=== PATIENT | female | born 1985 | race Caucasian/White ===

== ENCOUNTER 2018-11-20 20:24 | Emergency (ER) | payer SELFPAY ==
[2018-11-20] MEDS ORDERED: ONDANSETRON 4 MG/2 ML VIAL ONE (21:42)
[2018-11-20] MEDS ORDERED: KETOROLAC 30 MG/ML INJ ONE (21:42)
[2018-11-20] MEDS ORDERED: NA CHLORIDE 0.9% 1,000 ML ONE (21:42)
[2018-11-20 21:48] LABS: Absolute Lymphocytes (CBC) 2.6 K/uL (0.7-4.9); Basophils % 0.7 % (0-1.3); Hematocrit 40.7 % (36.0-45.0); Lymphocytes % 31.2 % (15.3-44.8); MPV 9.1 fL (7.6-11.3); RBC Red Blood Cell Count 4.17 M/uL (3.86-4.86)
[2018-11-20 21:49] LABS: ALT/SGPT 17 U/L (12-78); AST/SGOT 16 U/L (15-37); Albumin 3.7 g/dL (3.4-5.0); Alkaline Phosphatase 81 U/L (45-117); BUN Blood Urea Nitrogen 7 mg/dL (7-18); Bicarbonate 24 mmol/L (21-32); Bilirubin Direct < 0.1 mg/dL (0-0.2); Bilirubin Total 0.3 mg/dL (0.2-1.0); Glucose Level 91 mg/dL (74-106); Lipase 89 U/L (73-393); Potassium 3.4 mmol/L (3.5-5.1); Protein, Total 6.9 g/dL (6.4-8.2); Sodium Level 141 mmol/L (136-145)
[2018-11-20 22:09] LABS: Urine Blood NEGATIVE (NEG); Urine Glucose NEGATIVE (NEG); Urine Protein NEGATIVE (NEG); Urine pH 6.5 (5.0-7.0)
[2018-11-20] MEDS ORDERED: NS KCL 20MEQ 1,000 ML IV ONE (22:21)
--- NOTE | 2018-11-20 23:24 | EDPHYS ---
Physician Documentation [facility] Name: Rei Heller Age: 33 yrs Sex: Female : 1985 Arrival Date: 11/20/2018 Time: 20:36 Bed 6 Private MD: ED Physician Dutch Rosales HPI: 11/20 21:10 This 33 yrs old Female presents to ER via Ambulatory with complaints of kb Abdominal Pain. 21:10 The patient presents with abdominal pain right lower quadrant. Onset: The kb symptoms/episode began/occurred yesterday. The symptoms do not radiate. Associated signs and symptoms: none. The symptoms are described as constant. Modifying factors: The symptoms are alleviated by position. the symptoms are aggravated by walking, stretching out. Severity of pain: At its worst the pain was moderate severe in the emergency department the pain is unchanged. The patient has not experienced similar symptoms in the past. The patient has not recently seen a physician. 21:11 abd pain that started yesterday in umbilical area that was intermittent. Today pain is kb constant and localized to RLQ. 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 - Social history:: Smoking status: Patient uses tobacco products, smokes one pack cigarettes per day. - Ebola Screening: : Patient denies travel to an Ebola-affected area in the 21 days before illness onset. ROS: 21:10 Constitutional: Negative for fever, chills, and weight loss, ENT: Negative for injury, kb pain, and discharge, Neck: Negative for injury, pain, and swelling, Cardiovascular: Negative for chest pain, palpitations, and edema, Respiratory: Negative for shortness of breath, cough, wheezing, and pleuritic chest pain, Back: Negative for injury and pain, MS/Extremity: Negative for injury and deformity, Skin: Negative for injury, rash, and discoloration, Neuro: Negative for headache, weakness, numbness, tingling, and seizure. 21:10 Abdomen/GI: Positive for abdominal pain. Exam: 21:09 Constitutional: This is a well developed, well nourished patient who is awake, alert, kb and in no acute distress. Head/Face: Normocephalic, atraumatic. ENT: Nares patent. No nasal discharge, no septal abnormalities noted. Tympanic membranes are normal and external auditory canals are clear. Oropharynx with no redness, swelling, or masses, exudates, or evidence of obstruction, uvula midline. Mucous membranes moist. Neck: Trachea midline, no thyromegaly or masses palpated, and no cervical lymphadenopathy. Supple, full range of motion without nuchal rigidity, or vertebral point tenderness. No Meningismus. Chest/axilla: Normal chest wall appearance and motion. Nontender with no deformity. No lesions are appreciated. Cardiovascular: Regular rate and rhythm with a normal S1 and S2. No gallops, murmurs, or rubs. Normal PMI, no JVD. No pulse deficits. Respiratory: Lungs have equal breath sounds bilaterally, clear to auscultation and percussion. No rales, rhonchi or wheezes noted. No increased work of breathing, no retractions or nasal flaring. Back: No spinal tenderness. No costovertebral tenderness. Full range of motion. Skin: Warm, dry with normal turgor. Normal color with no rashes, no lesions, and no evidence of cellulitis. MS/ Extremity: Pulses equal, no cyanosis. Neurovascular intact. Full, normal range of motion. Neuro: Awake and alert, GCS 15, oriented to person, place, time, and situation. Cranial nerves II-XII grossly intact. Motor strength 5/5 in all extremities. Sensory grossly intact. Cerebellar exam normal. Normal gait. 21:09 Abdomen/GI: Inspection: abdomen appears normal, Bowel sounds: normal, in all quadrants, Palpation: moderate abdominal tenderness, in the right lower quadrant, Indicators: McBurney's point is tender, Rovsing's sign is positive. Vital Signs: 20:44 BP 116 / 63; Pulse 84; Resp 18; Temp 98.4; Pulse Ox 96% on R/A; Weight 70.31 kg (R); aj1 Height 5 ft. 0 in. (152.40 cm) (R); Pain 8/10; 21:30 BP 105 / 54; Pulse 61; Resp 16; Pulse Ox 97% on R/A; aa1 22:27 BP 92 / 52; Pulse 65; Resp 18; Pulse Ox 96% on R/A; aa1 23:11 BP 110 / 69; Pulse 64; Resp 16; Pulse Ox 95% on R/A; aa1 11/21 00:05 BP 108 / 69; Pulse 67; Resp 16; Temp 98.6; Pulse Ox 95% on R/A; Pain 3/10; aa1 11/20 20:44 Body Mass Index 30.27 (70.31 kg, 152.40 cm) aj1 MDM: 11/20 21:04 Patient medically screened. kb 21:09 Data reviewed: vital signs, nurses notes. Data interpreted: Pulse oximetry: on room air kb is 96 %. Interpretation: normal. 11/20 21:08 Order name: Basic Metabolic Panel; Complete Time: 21:55 kb 11/20 21:08 Order name: CBC with Diff; Complete Time: 21:56 kb 11/20 21:08 Order name: Hepatic Function; Complete Time: 21:55 kb 11/20 21:08 Order name: Lipase; Complete Time: 21:55 kb 11/20 21:40 Order name: Urine Dipstick--Ancillary (enter results); Complete Time: 23:20 em1 11/20 21:40 Order name: Urine --Ancillary (enter results); Complete Time: 23:20 em1 11/20 21:08 Order name: CT Abd/Pelvis - IV Contrast Only; Complete Time: 11:41 kb 11/20 21:08 Order name: IV Saline Lock; Complete Time: 21:22 kb 11/20 21:08 Order name: Labs collected and sent; Complete Time: 21:22 kb 11/20 21:08 Order name: Urine Dipstick-Ancillary (obtain specimen); Complete Time: 21:37 kb Administered Medications: 21:48 Drug: NS 0.9% 1000 ml Route: IV; Rate: 1000 ml; Site: right antecubital; aa1 21:48 Drug: Zofran 4 mg Route: IVP; Site: right antecubital; aa1 21:50 Drug: TORadol - Ketorolac 15 mg Route: IVP; Site: right antecubital; aa1 22:28 Drug: NS 0.9% with KCl 20 mEq/L 1000 ml Route: IV; Rate: 125 ml/hr; Site: right aa1 antecubital; 11/21 00:07 Drug: Potassium Effervescent Tablet 25 mEq Route: PO; aa1 00:07 Not Given (Patient Refused): Dulcolax Suppository 10 mg [place] once aa1 00:07 Drug: Lactulose 30 grams Volume: 45 ml; Route: PO; aa1 Disposition: 11/20 23:22 Co-signature as Attending Physician, Dutch Rosales MD I agree with the assessment and [facility] plan of care. Disposition: 11/20/18 23:24 Discharged to Home. Impression: Abdominal tenderness, Constipation. - Condition is Stable. - Discharge Instructions: Abdominal Pain, Adult, Constipation, Adult, Constipation, Adult, [id number], Abdominal Pain, Adult, Adom-ha-Rvtc. - Prescriptions for Bentyl 20 mg Oral Tablet - take 1 tablet by ORAL route every 6 hours As needed; 20 tablet. Pepcid 20 mg Oral Tablet - take 1 tablet by ORAL route every 12 hours for 10 days; 20 tablet. Zofran 4 mg Oral Tablet - take 1 tablet by ORAL route every 12 hours As needed; 20 tablet. Dulcolax 10 mg Rectal Suppository - insert 1 suppository by RECTAL route every 12 hours As needed; 10 suppository. Miralax 17 gram/dose Oral - take 1 packet by ORAL route every 12 hours dilute powder in 8 ounces of water or juice; 20 packet. - Medication Reconciliation Form, Thank You Letter, Antibiotic Education, Prescription Opioid Use form. - Follow up: Private Physician; When: 2 - 3 days; Reason: Recheck today's complaints, Continuance of care, Re-evaluation by your physician. - Problem is new. - Symptoms have improved. Signatures: Dispatcher [employer] EDNC Jen Acuna, BENCH WORKER BINDING-C BENCH WORKER BINDING-Ckb Rachelle Escalera RN RN aj1 Maribel Woodall RN RN aa1 Dutch Rosales MD MD [facility] Corrections: (The following items were deleted from the chart) 11/21 00:07 11/20 23:24 11/20/2018 23:24 Discharged to Home. Impression: Abdominal tenderness; aa1 Constipation. Condition is Stable. Forms are Medication Reconciliation Form, Thank You Letter, Antibiotic Education, Prescription Opioid Use. Follow up: Private Physician; When: 2 - 3 days; Reason: Recheck today's complaints, Continuance of care, Re-evaluation by your physician. Problem is new. Symptoms have improved. rishi
--- NOTE | 2018-11-20 23:24 | ER ---
Nurse's Notes [facility] Name: Rei Heller Age: 33 yrs Sex: Female : 1985 Arrival Date: 11/20/2018 Time: 20:36 Bed 6 Private MD: Diagnosis: Abdominal tenderness;Constipation Presentation: 11/20 20:41 Presenting complaint: Patient states: RLQ abdominal pain for the past 2 days, but today aj1 the pain has gotten worse. Denies fever. Reports nausea, denies V/D. Transition of care: patient was not received from another setting of care. Onset of symptoms was November 18, 2018. Risk Assessment: Do you want to hurt yourself or someone else? Patient reports no desire to harm self or others. Initial Sepsis Screen: Does the patient meet any 2 criteria? No. Patient's initial sepsis screen is negative. Does the patient have a suspected source of infection? Yes: Acute abdominal pain. Care prior to arrival: None. 20:41 Method Of Arrival: Ambulatory aj1 20:41 Acuity: MIGNON 3 aj1 Triage Assessment: 20:44 General: Appears in no apparent distress. uncomfortable, Behavior is calm, cooperative, aj1 appropriate for age. Pain: Complains of pain in right lower quadrant Pain currently is 8 out of 10 on a pain scale. Neuro: Level of Consciousness is awake, alert, obeys commands. Cardiovascular: Patient's skin is warm and dry. Respiratory: Airway is patent Respiratory effort is even, unlabored, Respiratory pattern is regular, symmetrical. GI: Reports lower abdominal pain. 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 - Social history:: Smoking status: Patient uses tobacco products, smokes one pack cigarettes per day. - Ebola Screening: : Patient denies travel to an Ebola-affected area in the 21 days before illness onset. Screenin:25 Abuse screen: Denies threats or abuse. Denies injuries from another. Nutritional aa1 screening: No deficits noted. Tuberculosis screening: No symptoms or risk factors identified. Fall Risk None identified. Assessment: 21:25 General: Appears in no apparent distress. comfortable, Behavior is calm, cooperative, aa1 appropriate for age. Pain: Complains of pain in right lower quadrant Pain began 2-3 days ago. Is continuous. Neuro: Level of Consciousness is awake, alert, obeys commands, Oriented to person, place, time, situation, Moves all extremities. Full function Gait is steady, Speech is normal. Cardiovascular: Heart tones S1 S2 present Rhythm is regular. Respiratory: Airway is patent Respiratory effort is even, unlabored, Respiratory pattern is regular, symmetrical. GI: Abdomen is non-distended, Bowel sounds present X 4 quads. Abd is soft X 4 quads Abdomen is tender to palpation in right lower quadrant Reports lower abdominal pain, nausea, Patient currently denies constipation, diarrhea, vomiting. : No signs and/or symptoms were reported regarding the genitourinary system. Derm: Skin is intact, is healthy with good turgor, Skin is pink, warm \T\ dry. Musculoskeletal: Circulation, motion, and sensation intact. Capillary refill < 3 seconds. 22:27 Reassessment: Patient appears in no apparent distress at this time. Patient and/or aa1 family updated on plan of care and expected duration. Pain level reassessed. Patient is alert, oriented x 3, equal unlabored respirations, skin warm/dry/pink. Awaiting CT results. 23:11 Reassessment: Patient appears in no apparent distress at this time. Patient and/or aa1 family updated on plan of care and expected duration. Pain level reassessed. Patient is alert, oriented x 3, equal unlabored respirations, skin warm/dry/pink. Awaiting CT results. 11/21 00:05 Reassessment: Patient appears in no apparent distress at this time. Patient is alert, aa1 oriented x 3, equal unlabored respirations, skin warm/dry/pink. Discussed d/c \T\ f/u instructions with pt; denies question or concerns at this time. Ambulatory to lobby with steady gait Patient states symptoms have improved. Vital Signs: 11/20 20:44 BP 116 / 63; Pulse 84; Resp 18; Temp 98.4; Pulse Ox 96% on R/A; Weight 70.31 kg (R); aj1 Height 5 ft. 0 in. (152.40 cm) (R); Pain 8/10; 21:30 BP 105 / 54; Pulse 61; Resp 16; Pulse Ox 97% on R/A; aa1 22:27 BP 92 / 52; Pulse 65; Resp 18; Pulse Ox 96% on R/A; aa1 23:11 BP 110 / 69; Pulse 64; Resp 16; Pulse Ox 95% on R/A; aa1 11/21 00:05 BP 108 / 69; Pulse 67; Resp 16; Temp 98.6; Pulse Ox 95% on R/A; Pain 3/10; aa1 11/20 20:44 Body Mass Index 30.27 (70.31 kg, 152.40 cm) aj1 ED Course: 11/20 20:36 Patient arrived in ED. cl3 20:42 Triage completed. aj1 20:44 Arm band placed on. aj1 21:04 Jen Acuna FNP-C [facility]. kb 21:04 Dutch Rosales MD is Attending Physician. kb 21:12 Radiology exam delayed due to lab results not completed at this time. (BUN/Creatinine). vm2 21:22 Initial lab(s) drawn, by tn, sent to lab. Inserted saline lock: 20 gauge in right em1 forearm, using aseptic technique. Blood collected. 21:25 Patient has correct armband on for positive identification. Bed in low position. Call aa1 light in reach. Pulse ox on. NIBP on. Warm blanket given. 21:37 Radiology exam delayed due to lab results not completed at this time. (BUN/Creatinine). 2 21:37 Maribel Woodall, RN is Primary Nurse. aa1 21:45 Radiology exam delayed due to lab results not completed at this time. (BUN/Creatinine) mt test not completed at this time. 22:18 CT Abd/Pelvis - IV Contrast Only In Process Unspecified. EDMS 11/21 00:05 No provider procedures requiring assistance completed. IV discontinued, intact, aa1 bleeding controlled, No redness/swelling at site. Pressure dressing applied. Administered Medications: 11/20 21:48 Drug: NS 0.9% 1000 ml Route: IV; Rate: 1000 ml; Site: right antecubital; aa1 21:48 Drug: Zofran 4 mg Route: IVP; Site: right antecubital; aa1 21:50 Drug: TORadol - Ketorolac 15 mg Route: IVP; Site: right antecubital; aa1 22:28 Drug: NS 0.9% with KCl 20 mEq/L 1000 ml Route: IV; Rate: 125 ml/hr; Site: right aa1 antecubital; 11/21 00:07 Drug: Potassium Effervescent Tablet 25 mEq Route: PO; aa1 00:07 Not Given (Patient Refused): Dulcolax Suppository 10 mg MD once aa1 00:07 Drug: Lactulose 30 grams Volume: 45 ml; Route: PO; aa1 Outcome: 11/20 23:24 Discharge ordered by MD. blackwell 11/21 00:05 Discharged to home ambulatory, with significant other. aa1 Condition: good Discharge instructions given to patient, Instructed on discharge instructions, follow up and referral plans. medication usage, Demonstrated understanding of instructions, follow-up care, medications, Prescriptions given X 5 00:07 Patient left the ED. aa1 Signatures: Dispatcher [employer] EDMS Jen Acuna, CUSTOMER RETENTION SPECIALIST-C CUSTOMER RETENTION SPECIALIST-Ckb Rachelle Escalera, RN RN aj1 Maribel Woodall RN RN aa1 Dutch Rosales MD MD cha Martinez, Scar em1 Ra Lovett, Katheryn perez2 Taya Haynes3
[2018-11-20] MEDS ORDERED: POTASSIUM 25 MEQ EFFERV TAB ONE (23:59)
[2018-11-20] MEDS ORDERED: BISACODYL 10 MG RECTAL SUPP ONE (23:59)
[2018-11-21] MEDS ORDERED: LACTULOSE 20 GM/30 ML UCUP ONE
[2018-11-21 01:09] VITALS: TEMP 98.4
[2018-11-21 01:13] VITALS: BP 110/69; O2SAT 95
--- NOTE | 2018-11-21 11:00 | RAD REPORT ---
EXAM DESCRIPTION: CT - Abdomen Pelvis W Contrast - 11/21/2018 1:59 am CLINICAL HISTORY: 33 years Female RIGHT lower quadrant ABD PAIN TECHNIQUE: Contiguous axial images obtained through the abdomen and pelvis following intravenous con trast administration. Coronal and sagittal reformatted images provided. This CT exam was performed according to our departmental dose-optimization program, which includes on e or more of the following dose reduction techniques: automated exposure control, adjustment of the m A and/or kV according to patient size, and/or use of iterative reconstruction technique. COMPARISON: No prior exams provided for comparison. FINDINGS: The appendix is normal. There is mild to moderate diffuse colonic constipation without b owel inflammation, obstruction, free intraperitoneal air, or ascites. Minimal right middle lobe atelectasis. Subcentimeter foci of low attenuation in the right lobe of the liver are nonspecific but likely benig n. The biliary tree, gallbladder, pancreas, spleen, adrenal glands, kidneys, uterus, and ovaries are nor mal. Underdistention vs. mild thickening of the urinary bladder. No abdominal aortic aneurysm or retroperitoneal hemorrhage. No acute osseous abnormality. IMPRESSION: Colonic constipation without bowel inflammation or obstruction. Normal appendix. Underdistention vs. mild thickening of the urinary bladder, correlate with urinalysis.. Electronically signed by: Ana Paula Mueller MD 11/20/2018 10:40 PM CDT Due to temporary technical issues with the PACS/Fluency reporting system, reports are being signed by the in house radiologist as a courtesy to ensure prompt reporting. The interpreting radiologist is f ully responsible for the content of the report.
== END 2018-11-21 00:07 | disposition home or self-care (01) ==
LOC: ER 20:24
DX: K59.00 Constipation, unspecified (principal); F17.210 Nicotine dependence, cigarettes, uncomplicated
CPT/HCPCS: 36415; 74177; 80048; 80076; 81003; 81025; 83690; 85025; 96374; 96375; 99284; J2405; J7030; Q9967

== ENCOUNTER 2024-03-06 13:37 | Emergency (ER) | payer SELFPAY ==
--- NOTE | 2024-03-06 14:06 | ER ---
Nurse's Notes [facility] Name: Rei Heller Age: 39 yrs Sex: Female : 1985 Arrival Date: 03/06/2024 Time: 13:37 Bed DX3 Private MD: Diagnosis: Acute embolism and thrombosis of deep veins of lower extremity-left Presentation: 03/06 13:47 Chief complaint: Patient states: I went to the doctor for left leg pain and they said I tm6 have a blood clot and sent me straight here. No SOB. Coronavirus screen: Client denies travel out of the [place] in the last 14 days. Ebola Screen: Patient negative for fever greater than or equal to 101.5 degrees Fahrenheit, and additional compatible Ebola Virus Disease symptoms Patient denies exposure to infectious person. Patient denies travel to an Ebola-affected area in the 21 days before illness onset. No symptoms or risks identified at this time. Onset of symptoms was March 06, 2024. 13:47 Method Of Arrival: Wheelchair tm6 13:53 Initial Sepsis Screen: Does the patient meet any 2 criteria? No. Patient's initial tm6 sepsis screen is negative. Does the patient have a suspected source of infection? No. Patient's initial sepsis screen is negative. Risk Assessment: Do you want to hurt yourself or someone else? Patient reports no desire to harm self or others. 13:53 Acuity: MIGNON 3 tm6 Triage Assessment: 13:47 General: Appears in no apparent distress. Behavior is crying. Pain: Complains of pain tm6 in left leg Pain currently is 9 out of 10 on a pain scale. EENT: No signs and/or symptoms were reported regarding the EENT system. Neuro: Level of Consciousness is awake, alert, obeys commands, Oriented to person, place, time, situation. Cardiovascular: Patient's skin is warm and dry. Respiratory: Airway is patent Respiratory effort is even, unlabored, Respiratory pattern is regular, symmetrical. GI: No signs and/or symptoms were reported involving the gastrointestinal system. Abdomen is flat, non-distended. : No signs and/or symptoms were reported regarding the genitourinary system. Derm: No signs and/or symptoms reported regarding the dermatologic system. Musculoskeletal: Swelling present in left leg Reports pain in left leg. 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 - Infectious Disease History:: Denies. - Social history:: Smoking status: Patient reports the use of cigarette tobacco products, smokes one pack cigarettes per day. states is quitting today. Screenin:37 [facility] ED Fall Risk Assessment (Adult) History of falling in the last 3 months, ll1 including since admission No falls in past 3 months (0 pts) Confusion or Disorientation No (0 pts) Intoxicated or Sedated No (0 pts) Impaired Gait Yes (1 pt) Mobility Assist Device Used Yes (1 pt) Altered Elimination No (0 pt) Score/Fall Risk Level 0 - 2 = Low Risk Maintained a safe environment, Hourly rounding (assess needs \T\ fall precautionary measures) done. Abuse screen: Denies threats or abuse. Nutritional screening: No deficits noted. Tuberculosis screening: No symptoms or risk factors identified. Assessment: 14:37 Reassessment: No changes from previously documented assessment. Patient and/or family ll1 updated on plan of care and expected duration. Pain level reassessed. Vital Signs: 13:53 BP 129 / 59; Pulse 90; Resp 17; Temp 98.5(O); Pulse Ox 100% on R/A; MAP 80 mmHg; Weight tm6 71.67 kg; Height 5 ft. 0 in. ; Pain 9/10; 13:53 Body Mass Index 30.86 (71.67 kg, 152.4 cm) tm6 13:53 Pain Scale: Adult tm6 ED Course: 13:39 Patient arrived in ED. ra3 13:45 Jen Acuna FNP-C [facility]. kb 13:45 Jose Bryant MD is Attending Physician. kb 13:49 Arm band placed on right wrist. tm6 13:55 Triage completed. tm6 14:36 Chayito Haynes, GUTIERREZ is Primary Nurse. ll1 14:37 Patient has correct armband on for positive identification. Bed in low position. ll1 Provided Education on: ER procedures and process. Cardiac monitoring not applicable on this patient. 14:37 No provider procedures requiring assistance completed. Patient did not have IV access ll1 during this emergency room visit. Administered Medications: 14:36 Drug: Xarelto PO 15 mg PO once Route: PO; ll1 14:36 Follow up: Response: No adverse reaction ll1 Medication: 14:37 VIS not applicable for this client. ll1 Outcome: 14:05 Discharge ordered by . narciso 14:37 Discharged to home via wheelchair, 1 14:37 Condition: stable 14:37 Discharge instructions given to patient, Instructed on discharge instructions, follow up and referral plans. medication usage, Demonstrated understanding of instructions, follow-up care, medications, Prescriptions given X 1, 14:38 Patient left the ED. ll1 Signatures: Jen Acuna, VERNELL DOUGHERTY-Chayito Edward RN RN 1 José Kuhn RN RN tm6 Nayeli Pfeiffer 3
--- NOTE | 2024-03-06 14:06 | EDPHYS ---
Physician Documentation [facility] Name: Rei Heller Age: 39 yrs Sex: Female : 1985 Arrival Date: 03/06/2024 Time: 13:37 Bed DX3 Private MD: ED Physician Jose Bryant HPI: 03/06 14:23 This 39 yrs old Female presents to ER via Wheelchair with complaints of Leg Swelling. kb 14:23 Pt is a 39 year old female who presents for blood clot in left calf. States she has had kb pain to left calf for about 2 weeks that has been getting worse. Was seen by PCP today, had xrays and US completed which revealed a DVT. [facility] PCP told her to come to the ER. Denies chest pain, shortness of breath. 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 - Infectious Disease History:: Denies. - Social history:: Smoking status: Patient reports the use of cigarette tobacco products, smokes one pack cigarettes per day. states is quitting today. ROS: 14:20 Constitutional: As per HPI kb Exam: 14:20 Constitutional: This is a well developed, well nourished patient who is awake, alert, kb and in no acute distress. Head/Face: Normocephalic, atraumatic. ENT: Moist Mucous membranes Cardiovascular: Regular rate Respiratory: Respirations even and unlabored. No increased work of breathing. Talking in full sentences Skin: Warm, dry with normal turgor. Normal color. Neuro: Awake and alert, GCS 15, oriented to person, place, time, and situation. 14:20 Musculoskeletal/extremity: Extremities: grossly normal except: noted in the left calf and medial aspect of left calf: pain, swelling, tenderness, ROM: intact in all extremities, Circulation is intact in all extremities. Sensation intact. Weight bearing: able to fully bear weight, Vital Signs: 13:53 BP 129 / 59; Pulse 90; Resp 17; Temp 98.5(O); Pulse Ox 100% on R/A; MAP 80 mmHg; Weight tm6 71.67 kg; Height 5 ft. 0 in. ; Pain 9/10; 13:53 Body Mass Index 30.86 (71.67 kg, 152.4 cm) tm6 13:53 Pain Scale: Adult tm6 MDM: 13:45 Medical Screening Exam initiated 13:55 Data reviewed: vital signs, nurses notes. External Records Reviewed: Outside ED record: kb US completed at 1200 today reviewed. Impression: Positive for DVT in the left popliteal and peroneal veins. . 14:21 Differential diagnosis: DVT, PE. Test considered but Not performed: CT: CT chest kb considered but pt denies chest pain, shortness of breath. Oxygen saturation 100% on room air, resp even and unlabored. Counseling: I had a detailed discussion with the patient and/or guardian regarding the historical points, exam findings, and any diagnostic results supporting the discharge/admit diagnosis, the need for outpatient follow up, a family practitioner, to return to the emergency department if symptoms worsen or persist or if there are any questions or concerns that arise at home. 16:02 Test considered but Not performed: Other Details Discussed completing ct and labs with kb pt. After discussion pt elected to not do further diagnostics this time. Will return for any concerns. Historians other than the Patient: Spouse/Significant Other: . Administered Medications: 14:36 Drug: Xarelto PO 15 mg PO once Route: PO; ll1 14:36 Follow up: Response: No adverse reaction ll1 Disposition Summary: 03/06/24 14:05 Discharge Ordered Notes: Location: Home Condition: Stable Diagnosis - Acute embolism and thrombosis of deep veins of lower extremity - left Followup: kb - With: Emergency Department - When: As needed - Reason: Worsening of condition Followup: kb - With: Private Physician - When: 2 - 3 days - Reason: Recheck today's complaints, Continuance of care, Re-evaluation by your physician Discharge Instructions: - Discharge Summary Sheet kb - Deep Vein Thrombosis kb Forms: - Medication Reconciliation Form kb - Antibiotic Education kb - Prescription Opioid Use kb - Patient Portal Instructions kb - Leadership Thank You Letter kb Prescriptions: - Xarelto 15 mg Oral tablet - take 1 tablet ORAL route 2 times per day for 21 days; 42 tablet; Refills: 0, kb Product Selection Permitted Signatures: Jen Acuna, LAD[employer] APPRENTICE-Audrey Edwardy, RN RN ll1 José Kuhn, RN RN tm6
[2024-03-06] MEDS ORDERED: RIVAROXABAN 20 MG TABLET PO ONE (14:19)
[2024-03-06] MEDS ORDERED: RIVAROXABAN 15 MG TABLET PO ONE (14:30)
[2024-03-06 14:58] VITALS: BP 129/59; TEMP 98.5; O2SAT 100
== END 2024-03-06 14:38 | disposition home or self-care (01) ==
LOC: ER 13:37
DX: I82.402 Acute embolism and thrombosis of unspecified deep veins of left lower extremity (principal); F17.210 Nicotine dependence, cigarettes, uncomplicated
CPT/HCPCS: 99283